=== PATIENT | female | born 1980 | race Caucasian/White ===

== ENCOUNTER 2019-10-08 07:13 | Emergency (ER) | payer OTHER ==
--- NOTE | 2019-10-08 07:49 | UC ---
Ear Complaint HPI - HPI Summary HPI Summary: CHIEF COMPLAINT: Ear pain HPI: This is a healthy 39-year-old female with a complaint of bilateral ear pain for the last 8 days. 3 years feels congested and it is hard to hear. She has treated this condition with ofloxacin drops that was prescribed to her through a telemedicine system. She denies fever. She denies cough. Discomfort is described as 7 out of 10. VITAL SIGNS REVIEWED. Within normal limits unless noted here. NURSES NOTE REVIEWED. "pt with ears feeling clogged for a week, she tried medications that have not helped at all, she feels like she is underwater. afebrile. " - History of Current Complaint Chief Complaint: UCEar Stated Complaint: EARS PLUGGED Time Seen by Provider: 10/08/19 07:49 Hx Obtained From: Patient Hx Last Menstrual Period: 10/07/19 Pain Intensity: 7 - Allergies/Home Medications Allergies/Adverse Reactions: Allergies Allergy/AdvReac Type Severity Reaction Status Date / Time No Known Allergies Allergy Verified 10/08/19 07:30 Home Medications: Home Medications Flonase NASAL SPRAY 50MCG* 1 spray INH DAILY 10/08/19 [History Confirmed ] Ofloxacin 0.3% (Ear Drop)* [Floxin 0.3% OTIC.BRITT (Ear Drop)] 12 drop OTIC BID [History Confirmed 10/08/19] Sertraline HCl [Zoloft] 150 mg PO DAILY 10/08/19 [History Confirmed 10/08/19] Trazodone HCl 1 tab PO QPM 10/08/19 [History Confirmed 10/08/19] PMH/Surg Hx/FS Hx/Imm Hx Previously Healthy: Yes - Surgical History Surgical History: Yes Surgery Procedure, Year, and Place: 2017 - Family History Known Family History: Positive: None - Social History Occupation: Employed Part-time - [employer] Alcohol Use: Occasionally Substance Use Type: None Smoking Status (MU): Never Smoked Tobacco Review of Systems All Other Systems Reviewed And Are Negative: Yes Constitutional: Positive: Negative ENT: Positive: Ear Ache - Bilateral congestion Respiratory: Positive: Negative Cardiovascular: Positive: Negative Gastrointestinal: Positive: Negative Musculoskeletal: Positive: Edema - right medial knee Is Patient Immunocompromised?: No Physical Exam - Summary Physical Exam Summary: Appearance: The patient is well-appearing, is in no pain or distress, and is well-nourished. Eyes: Conjunctiva are clear. Pupils are equal and reactive to light and accommodation. Extra ocular muscle movement is intact. ENT: The hearing is grossly normal, the pharynx is normal. The tympanic membranes are injected bilaterally right worse than left. There is no muffled or hoarse voice. No stridor. Neck: The neck is supple and there is no lymphadenopathy. Respiratory: The chest is non-tender to palpation and without crepitus. The lungs are clear, there are normal breath sounds, and there is no respiratory distress. No wheezes, rales or rhonchi. Cardiovascular: Heart sounds reveal a regular rate and rhythm. There are no clicks, rubs or murmurs. There are no carotid bruits or thrills. Circulation is grossly intact. Abdomen: The abdomen is soft and nontender. There is no organomegaly. Bowel sounds are present and within normal limits. No point tenderness at McBurneys point. No CVA tenderness. Musculoskeletal: Strength is intact. The patient moves all extremities. Neurological: The patient is alert. Motor and sensory are examination grossly intact. Speech is normal. Psychological: The patient displays age appropriate behavior, and is conversant. GCS=15. Skin: Negative for rashes. Triage Information Reviewed: Yes Vital Signs: Initial Vital Signs Temp 98.1 F 10/08/19 07:25 Pulse 88 10/08/19 07:25 Resp 18 10/08/19 07:25 BP 97/65 10/08/19 07:25 Pulse Ox 97 10/08/19 07:25 Vital Signs Reviewed: Yes Ear Complaint Course/Dx - Course Course Of Treatment: Healthy 39-year-old with 8 days of bilateral ear discomfort. Patient states that she called a online physician and was started on eardrops for external otitis. Her main symptom is the feeling of the inability to hear and discomfort in both ears. She denies other symptoms. She denies previous ear infection. She does have a 2-year-old who had a previous ear infection and was treated with an antibiotic. Her physical examination shows a mild redness of the left TM and moderate redness of the right TM. My diagnosis is bilateral otitis media. I emphasized the need to treat the congestion. I will start her on amoxicillin, twice a day for 10 days. Patient voices understanding. She will also use Sudafed as needed particularly before her travel. She knows to follow up if there is any increased temperature pain, or change in symptoms. - Differential Dx/Diagnosis Differential Diagnosis/HQI/PQRI: Foreign Body, Otitis Externa, Otitis Media Provider Diagnosis: Otitis media Discharge ED - Sign-Out/Discharge Documenting (check all that apply): Patient Departure All imaging exams completed and their final reports reviewed: No Studies - Discharge Plan Condition: Stable Disposition: HOME Prescriptions: Amoxicillin PO (*) [Amoxicillin 875 MG (*)] 875 mg PO BID #20 tab MDD 2 Patient Education Materials: Ear Infection (ED) Referrals: No Primary Care Phys,NOPCP [Primary Care Provider] - Additional Instructions: WE DISCUSSED: PLEASE SEEK CARE AT THE EMERGENCY DEPARTMENT IF SYMPTOMS WORSEN OR IF NEW SYMPTOMS DEVELOP. FOLLOW UP WITH YOUR PRIMARY CARE PHYSICIAN IF CONDITION CONTINUES BEYOND 3 DAYS WITHOUT IMPROVEMENT. YOUR DIAGNOSIS IS: Infection in both ears YOUR PRESCRIPTION RECOMMENDATION IS: Amoxicillin twice a day for 10 days OTHER INSTRUCTIONS: Lots of warm fluids such as tea and honey, steam, hot showers. See other information below. He should not develop a temperature if you do need to be reevaluated. You do have an infection of both eardrums do also need to clear the congestion behind the eardrums to make you more comfortable. Follow-up in 2 weeks unless you are completely well. Recheck at any time for increased pain or change in her symptoms. FOR PAIN AND/OR SLEEP: For pain: Ibuprofen (Motrin and other brand names) 400-600mg PLUS acetaminophen (Tylenol and other brand names) 500mg - 1000mg every 8 hours. Other information: The most important goal is to liquefy all the phlegm and mucus, and get it out of your head and chest. For sore throat, it is important to keep throat moist and protected. Any illness causing cough, congestion, sore throat or sinus discomfort can be helped by doing the following: To clear you head, sinuses and chest of congestion: stand under a warm shower stream to loosen secretions. Use a vaporizor. Stay away from smoke or irritants. Use saline nasal spray or Neti Pot to keep the flow of mucus from your nostrils and sinuses. For sore throat: drink lots of warm fluids. Tea and honey is particularly useful because the honey can coat protect your throat. Gargle with warm water with 1/2 teaspoon of salt per 8 ounces of water. Gargle for a few seconds and spit out. Repeat every three hours. Keep your throat protected with lozenges. Don't let your throat dry out. Use a vaporizor at night. Make sure to check with your pharmacist if you are taking other prescription medication prior to taking any over the counter medications listed here. DECONGESTANTS: helps relieve stuffiness and clears sinuses. Pseudoephedrine ( Sudafed or generic) is effective but you need to ask the pharmacist for it because it may be kept behind the counter. ANTIHISTAMINES: are not helpful in many colds and flus because they can worsen sore throat, dry eyes and mouth and cause drowsiness. Examples are diphenhydramine, doxylamine and chlorpheniramine. They can help dry you out if you are having profuse, clear drainage from the nose or post-nasal drip. EXPECTORANTS: helps thin mucous in the nose and chest, making it easier to clear the fluid out. Expectorants are in most combination cough/cold remedies and should be taken with plenty of water. Guaifenesin is the most common expectorant and it comes in pill or liquid form. Mucinex is an extended release form of guaifenesin. COUGH SUPPRESSANT: reduces the body's cough reflex. Dextromethorphan is in over the counter products, but sometimes narcotics such as codeine or hydrocodone are used to suppress cough. SPECIFIC MEDICATIONS: The following medicines may help: To help with cough: DEXTROMETHORPHAN (Vicks, Robitussin, Nyquil and other brands) To help break up phlegm: GUAIFENESIN (Mucinex, Robitussin, other brands) To help clear congestion in the nose and sinuses: PSEUDOEPHEDRINE (Sudafed, Dimetapp, other brands) To help clear nasal congestion: AFRIN NASAL SPRAY: 2-3 SPRAYS PER NOSTRIL, TWICE A DAY FOR TWO DAYS ONLY. FLONASE: (or other steroid nasal sprays) can help if your running nose is caused by an allergy. It can help relieve congestion. It is used once a day in each nostril. Check the dose with your pharmacist. FOLLOW-UP: re-check in 10 days if you are not improving. Return here or see your caregiver. RE-CHECK SOONER if you have increased pain, temperature, cough, sinus symptoms, or difficulty breathing or swallowing. Go directly to Emergency Department if symptoms are severe. - Billing Disposition and Condition Condition: STABLE Disposition: Home
== END 2019-10-08 08:11 | disposition home or self-care (01) ==
LOC: UCEAST 07:13
DX: H66.93 Otitis media, unspecified, bilateral (principal); M89.8X6 Other specified disorders of bone, lower leg
CPT/HCPCS: 99202; G0463

== ENCOUNTER 2019-10-17 21:36 | Emergency (ER) | payer OTHER ==
[2019-10-17 21:43] VITALS: BP 102/69
--- NOTE | 2019-10-17 21:52 | UC ---
Ear Complaint HPI - HPI Summary HPI Summary: ears congested for 3 weeks---has tried flonase, amoxicillin without relief--no fevers - History of Current Complaint Chief Complaint: UCEar Stated Complaint: PLUGGED EARS Time Seen by Provider: 10/17/19 21:46 Hx Obtained From: Patient Hx Last Menstrual Period: 10/05/19 ?: No Onset/Duration: Gradual Onset, Lasting Weeks - 3, Still Present Pain Intensity: 5 Pain Scale Used: 0-10 Numeric Aggravating Factors: Nothing Alleviating Factors: Nothing Associated Signs/Symptoms: Positive: Hearing Loss - Allergies/Home Medications Allergies/Adverse Reactions: Allergies Allergy/AdvReac Type Severity Reaction Status Date / Time No Known Allergies Allergy Verified 10/17/19 21:43 Home Medications: Home Medications Amoxicillin PO (*) [Amoxicillin 875 MG (*)] 875 mg PO BID #20 tab MDD 2 [Rx Confirmed 10/17/19] Sertraline HCl [Zoloft] 150 mg PO DAILY 10/08/19 [History Confirmed 10/17/19] Trazodone HCl 1 tab PO QPM 10/08/19 [History Confirmed 10/17/19] PMH/Surg Hx/FS Hx/Imm Hx Previously Healthy: Yes Psychological History: Anxiety, Depression - Surgical History Surgical History: Yes Surgery Procedure, Year, and Place: 2017 - Family History Known Family History: Positive: None - Social History Occupation: Employed Full-time Lives: With Family Alcohol Use: Occasionally Substance Use Type: None Smoking Status (MU): Never Smoked Tobacco Review of Systems All Other Systems Reviewed And Are Negative: Yes Constitutional: Positive: Negative Skin: Positive: Negative Eyes: Positive: Negative ENT: Positive: Ear Ache - ears clogged Respiratory: Positive: Negative Cardiovascular: Positive: Negative Gastrointestinal: Positive: Negative Genitourinary: Positive: Negative Motor: Positive: Negative Neurovascular: Positive: Negative Musculoskeletal: Positive: Negative Neurological/Mental Status: Positive: Negative Psychological: Positive: Negative Is Patient Immunocompromised?: No Physical Exam Triage Information Reviewed: Yes Appearance: Well-Appearing, No Pain Distress, Well-Nourished Vital Signs: Initial Vital Signs Temp 98.2 F 10/17/19 21:38 Pulse 62 10/17/19 21:38 Resp 12 10/17/19 21:38 BP 102/69 10/17/19 21:38 Pulse Ox 99 10/17/19 21:38 Vital Signs Reviewed: Yes Eye Exam: Normal Eyes: Positive: Conjunctiva Clear ENT Exam: Normal ENT: Positive: Normal ENT inspection, Hearing grossly normal, Pharynx normal, TMs normal - right, TM bulging - left, Uvula midline. Negative: Nasal congestion, Trismus, Muffled voice, Hoarse voice, Dental tenderness, Sinus tenderness Dental Exam: Normal Neck exam: Normal Neck: Positive: Supple, Nontender, No Lymphadenopathy Respiratory Exam: Normal Respiratory: Positive: Chest non-tender, Lungs clear, Normal breath sounds, No respiratory distress, No accessory muscle use Cardiovascular Exam: Normal Cardiovascular: Positive: RRR, Pulses Normal, Brisk Capillary Refill Musculoskeletal Exam: Normal Musculoskeletal: Positive: Strength Intact, ROM Intact, No Edema Neurological Exam: Normal Neurological: Positive: Alert, Muscle Tone Normal Psychological Exam: Normal Skin Exam: Normal Ear Complaint Course/Dx - Course Course Of Treatment: add sudafed continue flonase follow with pcp prn - Differential Dx/Diagnosis Provider Diagnosis: Acute dysfunction of both eustachian tubes Discharge ED - Sign-Out/Discharge Documenting (check all that apply): Patient Departure All imaging exams completed and their final reports reviewed: No Studies - Discharge Plan Condition: Stable Disposition: HOME Patient Education Materials: Pseudoephedrine (By mouth), Fluticasone (Into the nose), Serous Otitis Media (ED) Referrals: [facility] [Outside] - If Needed - Billing Disposition and Condition Condition: STABLE Disposition: Home
== END 2019-10-17 22:00 | disposition home or self-care (01) ==
LOC: UCEAST 21:36
DX: H69.93 Unspecified Eustachian tube disorder, bilateral (principal); F41.9 Anxiety disorder, unspecified; F32.9 Major depressive disorder, single episode, unspecified; Z79.899 Other long term (current) drug therapy
CPT/HCPCS: 99211; G0463